=== PATIENT | female | born 1970 | race African-American/Black ===

== ENCOUNTER → 2019-07-31 | Outpatient (CLI) | payer OTHER ==
--- NOTE | 2019-07-31 12:06 | US ---
EXAMINATION TYPE: US abdomen complete DATE OF EXAM: 07/31/2019 COMPARISON: None CLINICAL HISTORY: 48-year-old female R10.13 epigastric pain. TECHNIQUE: Multiple sonographic images of the abdomen are obtained. FINDINGS: EXAM MEASUREMENTS: Liver Length: 13.3 cm Gallbladder Wall: 0.2 cm CBD: 5.5 mm. Spleen: 8.5 cm Right Kidney: 11.2 x 4.7 x 5.1 cm Left Kidney: 11.6 x 5.4 x 5.6 cm Pancreas: Suboptimal visualization of the pancreatic head secondary to shadowing from bowel gas. Vis ualized portions show no gross abnormal body. Liver: wnl Gallbladder: No stones seen Evidence for sonographic Wynne's sign: No CBD: Upper limits of normal in caliber. Spleen: wnl Right Kidney: No hydronephrosis. Left Kidney: No hydronephrosis. Upper IVC: wnl Abd Aorta: wnl IMPRESSION: 1. Bile duct upper limits of normal in caliber at 5.5 mm may be normal for the patient. Correlate wit h bilirubin and alkaline phosphatase levels to exclude the possibility of early biliary obstruction. 2. No cholelithiasis or acute cholecystitis.
== END ==
LOC: RADUSWWP 07:44
PROVIDERS: ATTEND Family Medicine
DX: R10.13 Epigastric pain (principal)
CPT/HCPCS: 76700

== ENCOUNTER 2019-08-25 08:00 | Day surgery (SDC) | payer OTHER ==
[2019-08-12 11:14] VITALS: BMI 31.1
[~2019-08-25 08:00] MED LIST: LACTATED RINGERS 1,000 ML IV SCH; LIDOCAINE 1% 20 ML VIAL (10MG/ML) FOR IV START INTRADERMA PRN
[2019-08-25 08:18] VITALS: RESP 16; TEMP 97.7
[2019-08-25] MEDS ORDERED: PROPOFOL 10 MG/ML 20 ML VIAL IV ONE (09:00)
[2019-08-25] MEDS ORDERED: LIDOCAINE 1% INJ 10MG/ML (20 ML MDV) ONE (09:00)
--- NOTE | 2019-08-25 09:57 | P.PCN ---
Date of Procedure: 08/25/19 Description of Procedure: Brief history: Patient is a pleasant scheduled for an elective upper endoscopy as well as colonoscopy as a part of evaluation of evaluation of epigastric abdominal pain and a family history of colon cancer. She reports intermittent episodes of epigastric pain and is unsure of what the cause is. She denies any change in bowel habits but will occasionally report constipation. No blood per rectum. Family history of colon cancer in her father who in his 50s. Procedure performed: Esophagogastroduodenoscopy with biopsy Colonoscopy Estimated blood loss: Minimal. Preoperative diagnosis: Epigastric pain, family history of colon cancer, no prior colonoscopy Anesthesia: [facility] [place] Procedure: After informed consent was obtained from the patient was brought into the endoscopy unit and IV sedation was administered by anesthesia under continuous monitoring. Initially upper endoscopy was done. The Olympus GF 190 video endoscope was inserted inserted into the mouth and esophagus intubated without any difficulty and was gradually advanced into the stomach and duodenum and carefully examined. The bulb and second part of the duodenum appeared normal, except for scattered erythema suggestive of mild duodenitis with biopsies taken. The scope was then withdrawn into the stomach adequately insufflated with air and upon careful examination the antrum and body, cardia and fundus appeared normal, with some mild scattered erythema in the antrum and body suggestive of mild gastritis with biopsies taken. The scope was then withdrawn into the esophagus. The GE junction was located at 41 cm to the incisors. It appeared regular with no erythema erosions or ulcerations. Rest of the esophagus appeared normal. Patient tolerated the procedure well. At this time the patient continued to remain sedation. Initial digital rectal examination was normal. Olympus CF 190 video colonoscope was then inserted into the rectum and gradually advanced to the cecum without any difficulty. Careful examination was performed as the scope was gradually being withdrawn. The prep was excellent. The cecum, ascending colon, transverse colon, descending colon, sigmoid colon and rectum appeared normal. Mild scattered sigmoid diverticulosis noted. Retroflexion was performed in the rectum and no lesions were noted. Patient tolerated the procedure well. Impression: 1. Mild gastritis antrum and body, biopsied. Mild duodenitis biopsied. 2. Sigmoid diverticulosis. Otherwise normal-appearing colon from rectum to cecum. Recommendations: Findings of this examination were discussed with the patient. Okay to resume high-fiber diet. Okay to resume medications. Recommendation is for repeat colonoscopy in 5 years given family history of colon cancer. Avoid NSAID use.
[2019-08-25 10:14] VITALS: BP 120/86; PULSE 89
== END 2019-08-25 10:33 | disposition home or self-care (01) ==
LOC: ORWHC2ENDO 08:00
PROVIDERS: ATTEND Internal Medicine
DX: Z12.11 Encounter for screening for malignant neoplasm of colon (principal); K57.30 Diverticulosis of large intestine without perforation or abscess without bleeding; K29.50 Unspecified chronic gastritis without bleeding; B96.81 Helicobacter pylori [H. pylori] as the cause of diseases classified elsewhere; Z80.0 Family history of malignant neoplasm of digestive organs; F17.210 Nicotine dependence, cigarettes, uncomplicated; Z98.51 Tubal ligation status; Z90.710 Acquired absence of both cervix and uterus; Z79.899 Other long term (current) drug therapy
CPT/HCPCS: 88305; 88342; 43239; J2001; J2704; G0105